=== PATIENT | female | born 1995 | race Hispanic/Latino ===

== ENCOUNTER 2022-02-03 18:42 | Emergency (ER) | payer OTHER ==
--- NOTE | 2022-02-03 20:57 | EDPHYS ---
Physician Documentation [facility] Name: Ca Rodarte Age: 26 yrs Sex: Female : 1995 Arrival Date: 02/03/2022 Time: 18:44 Bed 12 Private MD: ED Physician Americo Champion HPI: 02/03 20:41 This 26 yrs old Female presents to ER via Unassigned with complaints of Cough, kb Congestion, Fever. 20:41 The patient or guardian reports cough, that is intermittent, described as mild, flu kb symptoms, low-grade fever, myalgias. Onset: The symptoms/episode began/occurred last night. Severity of symptoms: At their worst the symptoms were mild, moderate, in the emergency department the symptoms are unchanged. Modifying factors: The symptoms are alleviated by nothing, the symptoms are aggravated by nothing. Associated signs and symptoms: Pertinent positives: fever, rhinorrhea, sore throat. The patient has not experienced similar symptoms in the past. The patient has not recently seen a physician. pt reports cough, congestion, sore throat, fever, chills, bodyaches and sore throat since last . 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 - Social history:: Smoking status: Patient denies any tobacco usage or history of. Patient/guardian denies using alcohol, street drugs. ROS: 20:40 Cardiovascular: Negative for chest pain, palpitations, and edema. kb 20:40 Constitutional: Positive for body aches, chills, fatigue, fever, malaise. 20:40 ENT: Positive for rhinorrhea, sinus congestion. 20:40 Respiratory: Positive for cough. 20:40 All other systems are negative. Exam: 20:41 Constitutional: This is a well developed, well nourished patient who is awake, alert, kb and in no acute distress. Head/Face: Normocephalic, atraumatic. ENT: Moist Mucous membranes Cardiovascular: Regular rate and rhythm with a normal S1 and S2. No gallops, murmurs, or rubs. No pulse deficits. Respiratory: Respirations even and unlabored. No increased work of breathing. Talking in full sentences Skin: Warm, dry with normal turgor. Normal color. MS/ Extremity: Pulses equal, no cyanosis. Neurovascular intact. Full, normal range of motion. Neuro: Awake and alert, GCS 15, oriented to person, place, time, and situation. Moves all extremities. Normal gait. Psych: Awake, alert, with orientation to person, place and time. Behavior, mood, and affect are within normal limits. 20:41 Abdomen/GI: Inspection: gravid appearance, is noted, Bowel sounds: normal, Palpation: abdomen is soft and non-tender. Vital Signs: 19:30 BP 101 / 58; Pulse 115; Resp 20 S; Temp 98.8(O); Pulse Ox 100% on R/A; Weight 84.82 kg bb (R); Height 5 ft. 1 in. (154.94 cm) (R); 19:30 Body Mass Index 35.33 (84.82 kg, 154.94 cm) bb MDM: 19:35 Patient medically screened. kb 20:40 Data reviewed: vital signs, nurses notes. Data interpreted: Pulse oximetry: on room air kb is 100 %. Interpretation: normal. 20:56 Counseling: I had a detailed discussion with the patient and/or guardian regarding: the kb historical points, exam findings, and any diagnostic results supporting the discharge/admit diagnosis, lab results, the need for outpatient follow up, a family practitioner, to return to the emergency department if symptoms worsen or persist or if there are any questions or concerns that arise at home. 02/03 19:36 Order name: Flu; Complete Time: 20:03 kb 02/03 19:36 Order name: Strep; Complete Time: 20:03 kb 02/03 19:36 Order name: COVID-19 SARS RT PCR (Document "Date of Onset" if Symptomatic); Complete kb Time: 20:56 02/03 20:03 Order name: Throat Culture EDMS Administered Medications: No medications were administered Disposition: 02/04 07:24 Co-signature as Attending Physician, Americo Champion MD. [email or web address] Disposition Summary: 02/03/22 20:57 Discharge Ordered Location: Home kb Condition: Stable kb Diagnosis - Coronavirus infection, unspecified kb - Influenza due to identified novel influenza A virus - B kb Followup: kb - With: Emergency Department - When: As needed - Reason: Worsening of condition Followup: kb - With: Private Physician - When: 2 - 3 days - Reason: Recheck today's complaints, Continuance of care, Re-evaluation by your physician Discharge Instructions: - Discharge Summary Sheet kb - Influenza, Adult, [id number] kb - Viral Respiratory Infection, [id number] kb - COVID-19 kb Forms: - Medication Reconciliation Form kb - Thank You Letter kb - Antibiotic Education kb - Prescription Opioid Use kb Prescriptions: - Tamiflu 75 mg Oral Capsule - take 1 tablet by ORAL route every 12 hours for 5 days; 10 tablet; Refills: 0, kb Product Selection Permitted Signatures: Dispatcher [employer] Leora Taylor, ADVERTISING ASSISTANT MANAGER-C LIYAH-Cece Perez, RN RN lg3 Americo Champion MD MD [email or web address]
--- NOTE | 2022-02-03 20:57 | ER ---
Nurse's Notes [facility] Name: Ca Rodarte Age: 26 yrs Sex: Female : 1995 Arrival Date: 02/03/2022 Time: 18:44 Bed 12 Private MD: Diagnosis: Coronavirus infection, unspecified;Influenza due to identified novel influenza A virus-B Presentation: 02/03 19:30 Chief complaint: Patient states: pt c/o cough, runny nose, HARMON, fever, sore throat since bb last night. Coronavirus screen: Client presents with at least one sign or symptom that may indicate coronavirus-19. Standard/surgical mask placed on the client. Ebola Screen: No symptoms or risks identified at this time. Initial Sepsis Screen: Does the patient meet any 2 criteria? No. Patient's initial sepsis screen is negative. Does the patient have a suspected source of infection? No. Patient's initial sepsis screen is negative. Risk Assessment: Do you want to hurt yourself or someone else? Patient reports no desire to harm self or others. Onset of symptoms was February 02, 2022. 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 - Social history:: Smoking status: Patient denies any tobacco usage or history of. Patient/guardian denies using alcohol, street drugs. Screenin:08 Abuse screen: Denies threats or abuse. Denies injuries from another. Nutritional lg3 screening: No deficits noted. Tuberculosis screening: No symptoms or risk factors identified. Fall Risk None identified. Assessment: 21:08 General: Appears in no apparent distress. comfortable, Behavior is calm, cooperative. lg3 Neuro: No deficits noted. Level of Consciousness is awake, alert, obeys commands, Oriented to person, place, time, situation. Cardiovascular: Denies chest pain, Capillary refill < 3 seconds Clubbing of nail beds is absent JVD is absent Patient's skin is warm and dry. Respiratory: Reports cough that is persistent pain with cough Airway is patent Trachea midline Respiratory effort is even, unlabored, Respiratory pattern is regular, symmetrical, Breath sounds are clear bilaterally. GI: No deficits noted. No signs and/or symptoms were reported involving the gastrointestinal system. Abdomen is round. : No deficits noted. No signs and/or symptoms were reported regarding the genitourinary system. EENT: No deficits noted. No signs and/or symptoms were reported regarding the EENT system. Derm: No deficits noted. No signs and/or symptoms reported regarding the dermatologic system. Skin is intact, is healthy with good turgor, Skin is dry, Skin temperature is warm. Musculoskeletal: No deficits noted. Reports generalized body aches. Vital Signs: 19:30 BP 101 / 58; Pulse 115; Resp 20 S; Temp 98.8(O); Pulse Ox 100% on R/A; Weight 84.82 kg bb (R); Height 5 ft. 1 in. (154.94 cm) (R); 19:30 Body Mass Index 35.33 (84.82 kg, 154.94 cm) ED Course: 18:44 Patient arrived in ED. mr 19:06 Leora Grimaldo FNP-C is [facility]. kb 19:06 Americo Champion MD is Attending Physician. kb 19:30 Arm band placed on Patient placed in waiting room, Patient notified of wait time. bb 20:44 Triage completed. bb 21:08 Cece Stock, RN is Primary Nurse. lg3 21:08 Patient has correct armband on for positive identification. Bed in low position. Call lg3 light in reach. Side rails up X 1. Client placed on continuous cardiac and pulse oximetry monitoring. NIBP monitoring applied. Door closed. Noise minimized. 21:08 No provider procedures requiring assistance completed. Patient did not have IV access lg3 during this emergency room visit. Administered Medications: No medications were administered Medication: 21:08 VIS not applicable for this client. lg3 Outcome: 20:57 Discharge ordered by . kb 21:08 Discharged to home ambulatory. lg3 21:08 Condition: stable 21:08 Discharge instructions given to patient, Instructed on discharge instructions, medication usage, Demonstrated understanding of instructions, medications, Prescriptions given X 1. 21:15 Patient left the ED. lg3 Signatures: Leora Grimaldo FNP-C FNP-Ckb Tamera YaMary, RN RN bb Cece Stock, GONZÁLEZ RN lg3
[2022-02-03 21:21] VITALS: BP 101/58; TEMP 98.8; O2SAT 100
== END 2022-02-03 21:15 | disposition home or self-care (01) ==
LOC: ER 18:42
DX: O98.519 Other viral diseases complicating pregnancy, unspecified trimester (principal); U07.1 COVID-19; J10.1 Influenza due to other identified influenza virus with other respiratory manifestations; O99.519 Diseases of the respiratory system complicating pregnancy, unspecified trimester; Z3A.00 Weeks of gestation of pregnancy not specified
CPT/HCPCS: 87070; 87081; 87804 ×2; 99282; U0003

== ENCOUNTER 2022-02-06 06:37 | Emergency (ER) | payer OTHER ==
--- NOTE | 2022-02-06 07:29 | ER ---
Nurse's Notes [facility] Name: Ca Rodarte Age: 26 yrs Sex: Female : 1995 Arrival Date: 02/06/2022 Time: 06:39 Bed Waiting Private MD: Diagnosis: SARS-associated coronavirus as the cause of diseases classified elsewhere;Flu B; Presentation: 02/06 07:16 Chief complaint: Patient states: Pt was seen on Sunday and states is still has a sore vg1 throat and cough and needs something to help relive the pain and cough. Coronavirus screen: Vaccine status: Patient reports receiving the 2nd dose of the covid vaccine. Client denies travel out of the [place] in the last 14 days. Ebola Screen: Patient denies exposure to infectious person. Patient denies travel to an Ebola-affected area in the 21 days before illness onset. Initial Sepsis Screen: Does the patient meet any 2 criteria? No. Patient's initial sepsis screen is negative. Does the patient have a suspected source of infection? No. Patient's initial sepsis screen is negative. Risk Assessment: Do you want to hurt yourself or someone else? Patient reports no desire to harm self or others. Onset of symptoms was February 02, 2022. 07:16 Method Of Arrival: Ambulatory vg1 07:16 Acuity: JUANIS 4 vg1 Triage Assessment: 07:23 General: Appears in no apparent distress. uncomfortable, Behavior is cooperative, vg1 crying. Pain: Complains of pain in throat. EENT: Throat is clear. 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 - Social history:: Smoking status: Patient denies any tobacco usage or history of. Screenin:36 Abuse screen: Denies threats or abuse. Denies injuries from another. Nutritional ss screening: No deficits noted. Tuberculosis screening: Never had TB. Fall Risk None identified. Assessment: 07:36 General: Appears in no apparent distress. comfortable, Behavior is calm, cooperative. ss Pain: Complains of pain in sore throat. Neuro: Level of Consciousness is awake, alert, obeys commands. Respiratory: Airway is patent Respiratory effort is even, unlabored, Respiratory pattern is regular, symmetrical. Derm: Skin is intact, is healthy with good turgor, Skin is pink, warm \T\ dry. normal. Musculoskeletal: Circulation, motion, and sensation intact. Range of motion: intact in all extremities, Swelling absent. Vital Signs: 07:16 BP 112 / 62; Pulse 87; Resp 16; Temp 97.9; Pulse Ox 100% ; Weight 81.65 kg; Height 5 vg1 ft. 1 in. (154.94 cm); Pain 10/10; 07:16 Body Mass Index 34.01 (81.65 kg, 154.94 cm) vg1 ED Course: 06:39 Patient arrived in ED. ja2 07:09 Rony De La O DO is Attending Physician. ms3 07:18 Triage completed. vg1 07:23 Arm band placed on. vg1 07:27 Fernando Chavez MD is Referral Physician. ms3 07:36 Maricarmen Lopez, GONZÁLEZ is Primary Nurse. ss 07:36 Patient has correct armband on for positive identification. ss 07:36 No provider procedures requiring assistance completed. Patient did not have IV access ss during this emergency room visit. Administered Medications: No medications were administered Medication: 07:36 VIS not applicable for this client. ss Outcome: 07:27 Discharge ordered by . ms3 07:36 Discharged to home ambulatory. ss 07:36 Condition: good 07:36 Discharge instructions given to patient, Instructed on discharge instructions, follow up and referral plans. medication usage, Demonstrated understanding of instructions, follow-up care, medications, Prescriptions given X 1. 07:40 Patient left the ED. ss Signatures: Maricarmen Lopez, GONZÁLEZ RN Allyson Larsen RN RN vg1 Rony De La O DO DO ms3 Ting Jurado ja2
--- NOTE | 2022-02-06 07:29 | EDPHYS ---
Physician Documentation [facility] Name: Ca Rodarte Age: 26 yrs Sex: Female : 1995 Arrival Date: 02/06/2022 Time: 06:39 Bed Waiting Private MD: ED Physician Rony De La O HPI: 02/06 07:27 This 26 yrs old Female presents to ER via Ambulatory with complaints of Sore ms3 Throat, Cough. 07:27 The patient presents with sore throat. The patient describes throat pain as raw. Onset: ms3 The symptoms/episode began/occurred 2 week(s) ago. Severity of symptoms: At their worst the symptoms were severe, in the emergency department the symptoms. Modifying factors: The symptoms are alleviated by nothing, the symptoms are aggravated by swallowing. Associated signs and symptoms: Pertinent positives: chills, flu-like symptoms, myalgias, rhinorrhea. Patient seen in the ED on 02/03/2022 for similar symptoms.. 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 - Social history:: Smoking status: Patient denies any tobacco usage or history of. ROS: 07:27 Neck: Negative for injury, pain, and swelling, Cardiovascular: Negative for chest pain, ms3 and palpitations. 07:27 Skin: Negative for injury, rash, and discoloration. 07:27 Constitutional: Positive for chills. 07:27 Respiratory: Positive for cough. 07:27 All other systems are negative. Exam: 07:27 Constitutional: This is a well developed, well nourished patient who is awake, alert, ms3 and in no acute distress. Head/Face: Normocephalic, atraumatic. Neck: Trachea midline, no cervical lymphadenopathy. Supple, full range of motion without nuchal rigidity, or vertebral point tenderness. No Meningismus. Chest/axilla: Normal chest wall appearance and motion. Nontender with no deformity. Cardiovascular: Regular rate and rhythm with a normal S1 and S2. No gallops, murmurs, or rubs. Normal PMI, no JVD. No pulse deficits. Respiratory: Lungs have equal breath sounds bilaterally, clear to auscultation and percussion. No rales, rhonchi or wheezes noted. No increased work of breathing, no retractions or nasal flaring. 07:27 MS/ Extremity: Pulses equal, no cyanosis. Neurovascular intact. Full, normal range of motion. Neuro: Awake and alert, GCS 15, oriented to person, place, time, and situation. Cranial nerves II-XII grossly intact. Motor strength 5/5 in all extremities. Sensory grossly intact. Cerebellar exam normal. Normal gait. Psych: Awake, alert, with orientation to person, place and time. Behavior, mood, and affect are within normal limits. 07:27 ENT: Posterior pharynx: Tonsils: are normal in appearance, Uvula: normal, midline, non-edematous, no erythema, swelling, is not appreciated, erythema, that is mild, exudate, is not appreciated, peritonsillar mass, is not appreciated, pooling of secretions, is not appreciated. 07:27 Abdomen/GI: Inspection: gravid appearance, is noted, Bowel sounds: normal, Palpation: abdomen is soft and non-tender. Vital Signs: 07:16 BP 112 / 62; Pulse 87; Resp 16; Temp 97.9; Pulse Ox 100% ; Weight 81.65 kg; Height 5 vg1 ft. 1 in. (154.94 cm); Pain 10/10; 07:16 Body Mass Index 34.01 (81.65 kg, 154.94 cm) vg1 MDM: 07:27 Patient medically screened. ms3 07:27 Differential diagnosis: COVID vs Flu vs Viral illness. Data reviewed: vital signs, ms3 nurses notes, old medical records, Positive for COVID and FLu B on 02/03/2022 and as a result, I will discharge patient. Counseling: I had a detailed discussion with the patient and/or guardian regarding: the historical points, exam findings, and any diagnostic results supporting the discharge/admit diagnosis, the need for outpatient follow up, to return to the emergency department if symptoms worsen or persist or if there are any questions or concerns that arise at home. ED course: Discussed previous ED visit labs , PE findings with patient. Patient to follow up with PMD in 2-3 days. Patient understands/ agrees with plan. All questions answered. Return precautions given to include worsening symptoms, or any other concerns. . Administered Medications: No medications were administered Disposition Summary: 02/06/22 07:27 Discharge Ordered Location: Home ms3 Condition: Stable ms3 Diagnosis - SARS-associated coronavirus as the cause of diseases classified elsewhere ms3 - Flu B ms3 - ms3 Followup: ms3 - With: Fernando Chavez MD - When: 2 - 3 days - Reason: Recheck today's complaints Discharge Instructions: - Discharge Summary Sheet ms3 Forms: - Medication Reconciliation Form ms3 - Thank You Letter ms3 - Antibiotic Education ms3 - Prescription Opioid Use ms3 Prescriptions: - Claritin 10 mg Oral Tablet - take 1 tablet by ORAL route once daily As needed; 30 tablet; Refills: 0, ms3 Product Selection Permitted Signatures: Allyson Larsen RN RN vg1 Rony De La O DO DO ms3
[2022-02-06 07:59] VITALS: BP 112/62; TEMP 97.9; O2SAT 100
== END 2022-02-06 07:40 | disposition home or self-care (01) ==
LOC: ER 06:37
DX: O98.513 Other viral diseases complicating pregnancy, third trimester (principal); U07.1 COVID-19; O99.513 Diseases of the respiratory system complicating pregnancy, third trimester; J10.1 Influenza due to other identified influenza virus with other respiratory manifestations; Z3A.30 30 weeks gestation of pregnancy
CPT/HCPCS: 99282